=== PATIENT | male | born 1955 | race Caucasian/White ===

== ENCOUNTER 2019-09-08 14:46 | Emergency (ER) | payer OTHER ==
[~2019-09-08] VITALS: Ht 175.3 cm; Wt 86.2 kg
[~2019-09-08 14:46] MED LIST: ASPIRIN EC325 M1; HYDROCODON-ACE1 EAC7; METAMUCIL PAC1 UDPK1; MULTIVITAMINS1 EAC7; OXYIR 5 MG CAPSU5 M1
[2019-09-08] MEDS ORDERED: LEVO-T25 MCG PO (15:04)
[2019-09-08] MEDS ORDERED: TYLENOL WITH CO1 TA1 PO (15:05)
[2019-09-08] MEDS ORDERED: KEFLEX500 M2 PO (15:05)
[2019-09-08] MEDS ORDERED: BACTRIM DS TAB1 EACH PO (15:05)
[2019-09-08] MEDS ORDERED: NORCO 5-325 TA1 EAC1 PO (15:10)
[2019-09-08 15:30] VITALS: BP 149/88
== END 2019-09-08 15:31 | disposition home or self-care (01) ==
LOC: M.ERS 14:46
DX: S61.432A Puncture wound without foreign body of left hand, initial encounter (principal); L03.114 Cellulitis of left upper limb; W29.4XXA Contact with nail gun, initial encounter; Y93.89 Activity, other specified; Y92.89 Other specified places as the place of occurrence of the external cause; Y99.8 Other external cause status